=== PATIENT | male | born 1960 | race American Indian/Alaskan Native ===

== ENCOUNTER 2020-04-10 09:04 | Outpatient (CLI) | payer BC ==
[2020-04-10] MEDS ORDERED: REGADENOSON 0.4 MG/5 ML INJ IV SCH (12:00)
[2020-04-10 12:47] VITALS: BP 176/105
--- NOTE | 2020-04-10 15:06 | Treadmill Report ---
THALLIUM STRESS TEST LEFT VENTRICLE: Left ventricular chamber size is within normal spread. Perfusion study demonstrates homogeneous uptake of the tracer in all segments, no defects identified. Gated analysis demonstrates normal left ventricular systolic function, ejection fraction 55%. CONCLUSION: Normal myocardial perfusion study. JOB# [id number] CA/NTS
== END 2020-04-10 09:05 | disposition home or self-care (01) ==
LOC: CARD 09:04
PROVIDERS: ATTEND Internal Medicine
DX: R06.00 Dyspnea, unspecified (principal)
CPT/HCPCS: 78452; 93017; A9502; J2785

== ENCOUNTER 2020-06-20 13:37 | Outpatient (CLI) | payer BC ==
--- NOTE | 2020-06-20 14:21 | XRay Report ---
CHEST 2 VIEWS INDICATION / CLINICAL INFORMATION: DYSPNEA ON EFFORT. COMPARISON: None available. FINDINGS: SUPPORT DEVICES: None. HEART / MEDIASTINUM: No significant abnormality. LUNGS / PLEURA: No significant pulmonary or pleural abnormality. No pneumothorax. ADDITIONAL FINDINGS: No significant additional findings. IMPRESSION: No significant abnormality Signer Name: Dimitris Barakat MD FACR Signed: 06/20/2020 2:17 PM Workstation Name: [id number]
== END 2020-06-20 13:38 | disposition home or self-care (01) ==
LOC: SPVIMAG 13:37
PROVIDERS: ATTEND Internal Medicine
DX: R06.00 Dyspnea, unspecified (principal)
CPT/HCPCS: 71046